=== PATIENT | female | born 1995 | race Caucasian/White ===

== ENCOUNTER 2016-08-09 23:03 | Day surgery (SDC) | payer OTHER ==
[2016-08-09] MEDS ORDERED: KETOROLAC TROMETHAMINE 30 MG/ML 1 ML VIAL ONE (23:34)
[2016-08-09] MEDS ORDERED: ONDANSETRON 4 MG/2ML 2 ML VIAL ONE (23:34)
[2016-08-09] MEDS ORDERED: SODIUM CHLORIDE 0.9% 1,000 ML ONE (23:34)
[2016-08-09] MEDS ORDERED: HYDROMORPHONE HCL 1 MG/ML SYRINGE ONE (23:34)
[2016-08-09 23:39] LABS: ABSOLUTE NEUTROPHIL COUNT 7.4 K/mm3 (1.8-7.7); BASO % 0.3 % (0.2-1.0); EOS # 0.2 (0.0-0.5); EOS % 1.7 % (0.9-2.9); HEMATOCRIT 38.7 % (37.0-47.0); HEMOGLOBIN 12.2 gm/l (12.0-16.0); IMM NEUT% 0.3 % (0-1); LYMPH # 2.7 (1.0-4.8); LYMPH % 24.7 % (15-45); MEAN CELL VOLUME 85.1 fl (81.0-99.0); MEAN CORPUSCULAR HEMOGLOBIN 26.8 pg (27.0-31.0); MEAN CORPUSCULAR HGB CONC 31.5 g/dl (33.0-37.0); MEAN PLATELET VOLUME 9.5 fl (7.4-10.4); MONO # 0.6 (0.0-0.8); MONO % 5.2 % (4-12); NEUT % 67.8 % (43-75); PLATELET COUNT 333 K/mm3 (130-400); RED CELL DISTRIBUTION WIDTH 13.3 % (11.5-14.5)
[2016-08-09 23:56] LABS: ALB/GLOB RATIO 1.4 (>1.0); ALBUMIN 4.4 gm/dL (3.5-5.7); CALCIUM 9.5 mg/dL (8.6-10.3)
[2016-08-10] MEDS ORDERED: ONDANSETRON 4 MG/2ML 2 ML VIAL ONE ×2 (01:35→09:28)
[2016-08-10] MEDS ORDERED: PROMETHAZINE HCL 25 MG/ML VIAL ONE (02:18)
[2016-08-10] MEDS ORDERED: SODIUM CHLORIDE 0.9% 1,000 ML ONE (02:18)
[2016-08-10 03:35] LABS: SPECIFIC GRAVITY 1.015 (1.001-1.030); URINE BILIRUBIN NEGATIVE (NEGATIVE); URINE BLOOD NEGATIVE (NEGATIVE); URINE GLUCOSE (UA) NEGATIVE (NEGATIVE); URINE LEUKOCYTE ESTERASE NEGATIVE (NEGATIVE); URINE NITRITE NEGATIVE (NEGATIVE); URINE PROTEIN NEGATIVE (NEGATIVE); URINE UROBILINOGEN NORMAL (0-1 mg/dl)
[2016-08-10 03:36] LABS: URINE APPEARANCE CLEAR; URINE COLOR YELLOW
[2016-08-10] MEDS ORDERED: MENTHOL/CETYLPYRD 1 EACH LOZENGE PO PRN (04:26)
[2016-08-10] MEDS ORDERED: ONDANSETRON 4 MG/2ML 2 ML VIAL IV PRN ×3 (04:26→12:30)
[2016-08-10] MEDS ORDERED: BLISTEX LIPSTICK 1 EACH TP PRN (04:26)
[2016-08-10 05:10] VITALS: BMI 40.6
[2016-08-10] MEDS ORDERED: HYDROMORPHONE HCL 0.5 MG/0.5 ML SYRINGE IV PRN ×2 (05:15→12:34)
[2016-08-10] MEDS ORDERED: PUMP TUBING ONE (05:33)
[2016-08-10] MEDS: LACTATED RINGERS 1,000 ML IV SCH ×2 (05:42→12:37)
[2016-08-10] MEDS ORDERED: PIPERACILLIN-TAZO PREMIX BAG 50 ML IV ONE (05:46)
[2016-08-10] MEDS: PIPERACILLIN-TAZO PREMIX BAG 3.375 G in Premix (D5W) 50 ml 1 EACH IV SCH ×2 (06:13→12:36)
[2016-08-10] MEDS ORDERED: PROPOFOL 20 ML IV ONE (09:28)
[2016-08-10] MEDS ORDERED: ROCURONIUM BROMIDE 10 MG/ML DOSE IV ONE (09:28)
[2016-08-10] MEDS ORDERED: KETOROLAC TROMETHAMINE 30 MG/ML 1 ML VIAL ONE (09:28)
[2016-08-10] MEDS ORDERED: LIDOCAINE 2% (MULTI DOSE) 10 ML VIAL ONE (09:28)
[2016-08-10] MEDS ORDERED: DEXAMETHASONE SOD PHOS 4 MG/1 ML VIAL ONE (09:28)
[2016-08-10] MEDS ORDERED: MIDAZOLAM HCL 5 MG/5 ML VIAL ONE (09:29)
[2016-08-10] MEDS ORDERED: FENTANYL 250 MCG/5 ML AMP ONE ×2 (09:29→11:06)
--- NOTE | 2016-08-10 09:31 | US ---
ABDOMINAL-LIMITED: 08/09/2016 11:23 PM CLINICAL HISTORY: Right upper quadrant pain for 5 hours. Patient last ate at 1830 hours. STUDY: Limited right upper quadrant ultrasound COMPARISON: none FINDINGS: Gallbladder: Wall thickness: Normal Cholelithiasis: Mobile stones are identified. Largest measures 15 mm. Pericholecystic Fluid: none Sonographic Lara's Sign: Equivocal given pain medication administration. Bile ducts: Common duct measures 3 mm. Limited visualized Liver and RUQ structures: normal IMPRESSION: Cholelithiasis without definite findings of acute cholecystitis. Preliminary report was provided by [facility] at approximately 0031 hours on 08/10/2016.
--- NOTE | 2016-08-10 09:44 | PDOC1 ---
HPI: Date of Admission:08/10/2016 Chief Complaint:abdominal pain History of Present Illness: 20 y/o F with abdominal pain RUQ. Similar pain in the past but always resolved. This pain started about 45 min after eating and was severe. After waiting for some time the pain didn't get better so she came in. Complain of fever but no chills. Nausea/vomiting. Diarrhea. No sick contacts. Pain is in the RUQ and epigastric area that radiates to upper back on the right side. PMH: healthy PSH: tonsils, endometriosis, Meds: none Allergies: shellfish FH: CAD on fathers side SH: rare EtOH, denies tobacco or illicit drug use - Review of Systems Reports Nausea, Reports Vomiting, Reports Diarrhea, Denies Chest Pain, Denies Shortness of Breath, Denies Cough, Denies Sputum, Denies Headache, Denies Other H&P Objective GS - Objective Vital Signs Temperature 97.0 F 08/10/16 07:41 Pulse Rate 93 08/10/16 07:41 Respiratory Rate 17 08/10/16 07:41 Blood Pressure 111/71 08/10/16 07:41 O2 Saturation by Pulse Oximetry 100 08/10/16 07:41 Oxygen Delivery Method Room Air Oxygen Flow Rate 0 Laboratory Results - last 24 hr 08/09/16 08/09/16 23:25 23:57 WBC 10.9 H RBC 4.55 Hgb 12.2 Hct 38.7 MCV 85.1 MCH 26.8 L MCHC 31.5 L RDW 13.3 Plt Count 333 Neut % (Auto) 67.8 Lymph % (Auto) 24.7 Mccracken % (Auto) 5.2 Baso % (Auto) 0.3 Absolute Neuts (auto) 7.4 Eosinophils % 1.7 Sodium 137 Potassium 3.7 Chloride 103 Carbon Dioxide 27 Anion Gap 11 BUN 14 Creatinine 0.7 Estimated GFR 105 BUN/Creatinine Ratio 20 Glucose 95 Calcium 9.5 Total Bilirubin 0.2 AST 13 ALT 22 Alkaline Phosphatase 82 Total Protein 7.5 Albumin 4.4 Globulin 3.1 Albumin/Globulin Ratio 1.4 Lipase 16 Beta HCG, Qual Negative Urine Color Yellow Urine Appearance Clear Urine pH 7.0 Ur Specific [place] 1.015 Urine Protein Negative Urine Glucose (UA) Negative Urine Ketones Negative Urine Blood Negative Urine Nitrite Negative Urine Bilirubin Negative Urine Urobilinogen Normal Ur Leukocyte Esterase Negative % Immature Granulocyt 0.3 General: Alert, Oriented x3, Cooperative, No Acute Distress HEENT: Atraumatic, PERRLA, EOMI, Mucous membr. moist/pink Lungs: Clear to Auscultation Bilaterally, Normal Air Movement Cardiovascular: Regular Rate and Rhythm, Normal S1, Normal S2. negative: Murmur Abdomen: Soft, Tenderness (+ Lara's sign), Non-Distended, Normal Bowel Sounds Skin: Normal Color, Warm, Dry, Intact Psych/Mental Status: Normal Affect, Normal Mood - Assessment/ Plan (1) Cholecystitis, acute with cholelithiasis Current Visit: Yes Status: Acute Priority: High Code: K80.00OR today for GB removal will d/c home later today if stays laparoscopic - Procedure, Risks, Alternatives, Question PARQ: I discussed the procedure of laparoscopic cholecystectomy. We discussed risks including bleeding, infection, injury to the common bile duct and possible need to open. I addressed the patient's/family's concerns and questions. The patient/family expressed understanding and willingness to proceed.
[2016-08-10] MEDS ORDERED: SUCCINYLCHOLINE CHL 20 MG/ML DOSE ONE (10:00)
[2016-08-10] MEDS ORDERED: LIDOCAINE 1%/EPI 1:100,000 (MULTI DOSE) 30 ML VIAL ONE (10:05)
[2016-08-10] MEDS ORDERED: PROMETHAZINE HCL 25 MG/ML VIAL IM PRN (11:03)
[2016-08-10] MEDS ORDERED: HYDROMORPHONE HCL 1 MG/ML SYRINGE IV PRN ×2 (11:03→12:30)
[2016-08-10] MEDS ORDERED: MIDAZOLAM HCL 5 MG/5 ML VIAL IV ONE (11:05)
[2016-08-10] MEDS ORDERED: LACTATED RINGERS 1,000 ML IV SCH ×2 (11:15→12:30)
--- NOTE | 2016-08-10 11:42 | PCMON ---
Date of Procedure: 08/10/16 PREOPERATIVE DIAGNOSIS Acute cholecystitis with cholelithiasis. POSTOPERATIVE DIAGNOSIS same. PROCEDURE PERFORMED Laparoscopic cholecystectomy. COMPLICATIONS None. OPERATIVE FINDINGS Inflammed gallbladder with adhesions from omentum. ESTIMATED BLOOD LOSS 30 mL. BRIEF INDICATIONS MARINO TRAN is a 20 year old F patient with symptoms consistent with gallbladder disease and was admitted for consideration of laparoscopic cholecystectomy. The preoperative liver function tests were normal, and RUQ-focused ultrasound demonstrated cholelithiasis, she was quite painful and elevated WBC, with positive Lara's sign. Risks and benefits of surgery were explained to the patient, including the 1: 200 risk of common bile duct injury and the possible need for conversion to open technique (5%). The patient declined the possible alternatives and agreed to proceed with surgery, providing informed consent. DESCRIPTION OF PROCEDURE The patient was brought to the operating room and placed supine on the operating room table. A surgical briefing was held to verify the correct patient and correct procedure. A general anesthetic was induced uneventfully, followed by the administration of a subcutaneous heparin injection and perioperative antibiotics. Pneumatic compression stockings were placed on the legs and powered on. The abdomen was prepped and draped in a sterile fashion. A 5-mm direct optical view trocar was used to enter the right upper quadrant under direct vision of the abdominal wall layers. Once inside the abdominal cavity, a pneumoperitoneum was created. No injury to underlying structures occurred with placement of this trocar. Once inside the abdominal cavity, an additional 11-mm port was placed in the upper midline just below the xiphisternum. An additional 5-mm port was placed in the supraumbilical position , and a 5-mm port was placed in the right lateral position. All trocars were placed under direct visualization. There was no injury to underlying structures with placement of these trocars. Once inside the abdominal cavity and the pneumoperitoneum was created, the gallbladder was retracted over the liver. We were able to identify inflammation around the gallbladder, and there looked to be a stone in Sivan pouch. The gallbladder was then grasped by Sivan pouch and retracted up away from the common bile duct. The dissection was initiated with hook electrocautery on the posterior peritoneum covering of the hepatobiliary triangle, followed by the medical border of the gallbladder in the region of Calot triangle. We identified the lymph node of Calot which was not removed during the dissection. We continued our dissection, mobilizing lymph node off the cystic artery. As the triangle was developed, the cystic artery was identified. An intraoperative cholangiogram was not performed. The cystic duct and artery were both identified and exposed. A critical view of safety was obtained by clearing all the tissue between the underside of the infundibulum and the liver so the cystic duct and the artery could be clearly seen going into the gallbladder. The triangle of Calot had no aberrant structures or additional anatomy present within the triangle between the liver bed, the cystic duct and the region of the gallbladder. Once the critical view was demonstrated and there was no evidence of additional structures, we turned our attention to clipping the cystic artery and duct. The cystic artery was clipped twice proximally, once distally and transected. This was confirmed as the artery with pulsatile beating in the region of the clips once transected. Once the artery was taken, we turned our attention to clipping the cystic duct. The cystic duct was clipped with 2 to 3 clips proximally and once distally. This was then transected, and we then removed the gallbladder from the gallbladder bed. No injury to the underlying liver occurred with removal of the gallbladder, there was no evidence of bile leak or bile duct injury, and the gallbladder was not perforated with no spillage of stones prior to removal. The gallbladder was then placed in an Endocatch bag and removed through the 11-mm trocar. A Dimitri Stu was used with an O-Vicryl to close the fascia at the 11 mm Port site. The pneumoperitoneum was released, and the trocars were removed under direct visualization. The skin incisions were closed with 4-0 monocryl. Steristrips were applied and the patient was extubated and returned to recovery in stable condition. All needle, instrument, and sponge counts were correct at the end of the case.
[2016-08-10] MEDS ORDERED: HYDROMORPHONE HCL 1 MG/ML SYRINGE ONE (12:09)
[2016-08-10] MEDS: HYDROMORPHONE HCL 1 MG/ML SYRINGE IV PRN ×2 (12:12→12:14)
[2016-08-10] MEDS ORDERED: FENTANYL 100 MCG/2 ML VIAL ONE ×2 (12:17→12:35)
[2016-08-10] MEDS: FENTANYL 100 MCG/2 ML VIAL IV PRN ×3 (12:19→12:45)
[2016-08-10] MEDS ORDERED: OXYCODONE/ACETAMINOPHEN 5/325 MG TABLET PO PRN (12:30)
[2016-08-10 15:51] VITALS: BP 134/73
--- NOTE | 2016-08-14 14:48 | SURGPATH ---
[facility] [address] [place] [id number] Patient Name: MARINO TRAN MR#: [id number] : 1995 Gender: F Specimen #: [id number] Collected: 08/10/2016 Received: 08/13/2016 Reported: 08/14/2016 Submitting Phys: TREY [place] [facility] Phys[facility] Clinical History / Pre-Operative Diagnosis: Cholecystitis; cholelithiasis Specimen Source / Surgical Procedure Performed: Gallbladder Interpretation: GALLBLADDER, CHOLECYSTECTOMY: - CHRONIC CHOLECYSTITIS AND CHOLELITHIASIS WITH CHOLESTEROLOSIS Electronically Signed Out Lisa Renteria M.D. Gross Description: The specimen is received in a formalin filled container labeled with the patient's name and "gallbladder". An intact gallbladder is 8.0 x 2.5 cm. The serosa is smooth and pink-morrell. The edematous gallbladder wall is thickened to 0.5 cm. The mucosa is green morrell and velvety and has a diffuse covering of slightly raised yellow flecks. There is no nodule or induration. The lumen contains a moderate amount of thick, opaque yellow bile and a single 1 cm nodular, yellow-green calculus. Three delivery representative sections are submitted in one cassette including a cross section through the cystic duct surgical margin, a central cross section and a longitudinal section through the fundus. Kassi Jamseon Microscopic Description: Sections from the gallbladder show transmural chronic inflammation. Collections of foamy histiocytes are seen throughout the lamina propria, representing cholesterolosis. [id number]: [id number] K81.1
== END 2016-08-10 18:00 | disposition home or self-care (01) ==
LOC: ED 23:03 → SDC 08-10 04:22 → MS 08-10 04:22 → SDC 08-10 18:00
PROVIDERS: ATTEND Surgery
PROC: 0FT44ZZ Resection of Gallbladder, Percutaneous Endoscopic Approach (ICD-10-PCS; principal; 2016-08-09)
DX: K80.00 Calculus of gallbladder with acute cholecystitis without obstruction (principal); K82.8 Other specified diseases of gallbladder
CPT/HCPCS: 83690; 84703; 85025; 80053; 81003; 76705; 96375 ×3; 96376; 99285 ×2; 96361 ×2; 96365; 47562; J1170 ×4; J3010 ×4; J1100; A9270; J2550; J1885; J2250; J2001 ×2; J2405 ×4; J2543; J7120; J7030 ×2